=== PATIENT | male | born 2000 | race Caucasian/White ===

== ENCOUNTER → 2021-12-19 | Outpatient (CLI) | payer BC ==
--- NOTE | 2021-12-19 16:48 | RAD ---
Two-view abdomen dated 12/19/2021. COMPARISON: None. Clinical data indication: Pain for couple of days. FINDINGS: Flat and upright views of the abdomen show nondilated gas-filled loops of bowel throughout. No abnorm al calcification. No air-fluid level or pneumoperitoneum on the upright view. Clips in the right uppe r quadrant compatible with prior cholecystectomy. IMPRESSION: Nonobstructive bowel gas pattern. Electronically signed by: Jonathan Bar MD (12/19/2021 4:46 PM) [facility]
== END ==
LOC: RAD 14:54
PROVIDERS: ATTEND Physician Assistant
DX: R10.32 Left lower quadrant pain (principal); R11.2 Nausea with vomiting, unspecified
CPT/HCPCS: 74019